=== PATIENT | male | born 1980 | race Caucasian/White ===

== ENCOUNTER 2020-09-15 12:24 | Inpatient (IN) | payer MEDICARE, MEDICAID ==
[~2020-09-15] VITALS: Ht 170.2 cm; Wt 66.2 kg
[2020-09-15] MEDS ORDERED: HALOPERIDOL 5 MG TABLET PO PRN (13:45)
[2020-09-15 16:49] VITALS: BP 144/96
[2020-09-15] MEDS ORDERED: INFLUENZA VIRUS VACCINE QVS 2020-21 (6MO+)/PF 60 MCG/0.5 ML SYRINGE IM ONE (17:15)
[2020-09-16 00:07] VITALS: BP 132/89
[2020-09-16 08:09] VITALS: BP 136/87
[2020-09-16 09:18] LABS: BILIRUBIN,URINE NEGATIVE (NEGATIVE); GLUCOSE, URINE (UA) NEGATIVE (NEGATIVE); KETONES,URINE NEGATIVE (NEGATIVE); LEUKOCYTE ESTERASE ,URINE NEGATIVE (NEGATIVE); NITRATE,URINE NEGATIVE (NEGATIVE); OCCULT BLOOD,URINE NEGATIVE (NEGATIVE); PH,URINE 7.5 (5.0-8.0); PROTEIN,URINE NEGATIVE (NEGATIVE); UROBILINOGEN,URINE 0.2 mg/dL (<=1.0)
[2020-09-16 09:23] LABS: AMPHET/METH SCREEN,URINE NEGATIVE (NEGATIVE); BARBITURATE SCREEN, URINE NEGATIVE (NEGATIVE); BENZODIAZEPINES SCREEN,URINE NEGATIVE (NEGATIVE); CANNABINOID SCREEN,URINE NEGATIVE (NEGATIVE); COCAINE SCREEN,URINE NEGATIVE (NEGATIVE); METHADONE SCREEN, URINE NEGATIVE (NEGATIVE); OPIATE SCREEN,URINE NEGATIVE (NEGATIVE)
[2020-09-16 09:26] LABS: PHENCYCLIDINE SCREEN,URINE NEGATIVE (NEGATIVE)
[2020-09-16 09:32] LABS: APPEARANCE,URINE CLEAR (CLEAR)
[2020-09-16] MEDS: LORazepam 2 MG TABLET PO PRN (12:41)
[2020-09-16 16:12] VITALS: BP 115/72
[2020-09-16] MEDS: OLANZapine 10 MG TABLET PO SCH (20:25)
[2020-09-16] MEDS: QUEtiapine FUMARATE 200 MG TABLET PO SCH (20:25)
[2020-09-16] MEDS: TraZODone HCL 150 MG TABLET PO SCH (20:25)
[2020-09-17 06:24] VITALS: BP 132/87
[2020-09-17] MEDS: PALIPERIDONE 6 MG ER TABLET PO SCH (08:02)
[2020-09-17] MEDS: BENZTROPINE MESYLATE 1 MG TABLET PO SCH ×2 (08:02→16:30)
[2020-09-17] MEDS: LITHIUM CARBONATE 600 MG CAPSULE PO SCH ×2 (08:03→16:30)
[2020-09-17 08:20] VITALS: BP 134/85
[2020-09-17] MEDS ORDERED: PALIPERIDONE PALMITATE 234 MG/1.5 ML SYRINGE IM SCH (09:00)
[2020-09-17] MEDS: LORazepam 2 MG TABLET PO PRN (12:36)
[2020-09-17 16:46] VITALS: BP 129/87
[2020-09-17] MEDS: QUEtiapine FUMARATE 200 MG TABLET PO SCH (20:35)
[2020-09-17] MEDS: TraZODone HCL 150 MG TABLET PO SCH (20:35)
[2020-09-17] MEDS: OLANZapine 10 MG TABLET PO SCH (20:36)
[2020-09-17] MEDS: ZOLPIDEM TARTRATE 10 MG TABLET PO PRN (21:16)
[2020-09-18] MEDS: LORazepam 2 MG TABLET PO PRN (06:06)
[2020-09-18 06:09] VITALS: BP 137/78
[2020-09-18 08:14] VITALS: BP 136/81
[2020-09-18] MEDS: BENZTROPINE MESYLATE 1 MG TABLET PO SCH ×2 (08:33→16:32)
[2020-09-18] MEDS: PALIPERIDONE 6 MG ER TABLET PO SCH (08:33)
[2020-09-18] MEDS: LITHIUM CARBONATE 600 MG CAPSULE PO SCH ×2 (08:34→16:32)
[2020-09-18 08:55] LABS: BASOPHILS % (AUTO) 0.7 % (0.0-2.0); EOSINOPHILS % (AUTO) 4.5 % (1.0-6.0); HEMATOCRIT 42.6 % (41-53); HEMOGLOBIN 14.3 g/dL (13.5-17.5); LYMPHOCYTES # (AUTO) 1.4 K/uL (1.0-4.8); LYMPHOCYTES % (AUTO) 12.2 % (22.0-44.0); MEAN CORPUSCULAR HEMOGLOBIN 30.6 pg (26.0-34.0); MEAN CORPUSCULAR HGB CONC 33.6 G/dL (31.0-37.0); MEAN CORPUSCULAR VOLUME 91 fL (80-100); MONOCYTES # (AUTO) 1.2 K/uL (0.1-1.0); MONOCYTES % (AUTO) 10.4 % (2.0-9.0); NEUTROPHILS # (AUTO) 8.5 K/uL (1.8-7.7); NEUTROPHILS % (AUTO) 72.2 % (40.0-70.0); PLATELET COUNT (AUTO) 418 K/uL (150-450); RED BLOOD CELL COUNT(AUTO) 4.68 MIL/uL (4.50-5.90); RED CELL DISTRIBUTION WIDTH 13.2 % (11.5-14.5)
[2020-09-18 09:08] LABS: HEMOGLOBIN A1C 5.2 % (3.8-5.6)
[2020-09-18 09:11] LABS: LITHIUM 0.48 mmol/L (0.60-1.20)
[2020-09-18 09:46] LABS: ALANINE AMINOTRANSFERASE 35 U/L (12-78); ALBUMIN 4.1 g/dL (3.4-5.0); ALKALINE PHOSPHATASE 54 U/L (46-116); ANION GAP 7 mmol/L (8-16); ASPARTATE AMINOTRANSFERASE 18 U/L (15-37); BILIRUBIN,TOTAL 0.4 mg/dL (0.1-1.0); CALCIUM, TOTAL 9.3 mg/dL (8.8-10.5); CARBON DIOXIDE 28 mmol/L (22-29); CHLORIDE 101 mmol/L (98-107); CHOL/HDL RATIO 2.2 (4.2-7.3); CHOLESTEROL 126 mg/dL (131-200); GLOMERULAR FILTR. RATE CALC > 60 mL/min (>60); GLUCOSE,RANDOM 69 mg/dL (70-110); HDL CHOLESTEROL 58 mg/dL (40-60); LDL CHOL (CALC.) 48 mg/dL (0-130); POTASSIUM 3.7 mmol/L (3.5-5.1); SODIUM SERUM 136 mmol/L (136-145); TOTAL PROTEIN, SERUM 7.5 g/dL (6.4-8.2); TRIGLYCERIDES 102 mg/dL (15-150); UREA NITROGEN, BLOOD 10 mg/dL (7-18)
[2020-09-18 16:30] VITALS: BP 132/89
[2020-09-18] MEDS: QUEtiapine FUMARATE 200 MG TABLET PO SCH (20:32)
[2020-09-18] MEDS: TraZODone HCL 150 MG TABLET PO SCH (20:32)
[2020-09-18] MEDS: OLANZapine 10 MG TABLET PO SCH (20:32)
[2020-09-18] MEDS ORDERED: BACITRACIN 28 GM OINTMENT TP PRN (22:15)
[2020-09-18] MEDS ORDERED: ALBUTEROL SULFATE HFA 90 MCG/PUFF 8 GM INHALER IH PRN (22:15)
[2020-09-18] MEDS ORDERED: MAG HYDROX/AL HYDROX/SIMETH ES 30 ML SUSPENSION UDCUP PO PRN (22:15)
[2020-09-18] MEDS ORDERED: ACETAMINOPHEN 325 MG TABLET PO PRN (22:15)
[2020-09-18] MEDS ORDERED: CloNIDine HCL 0.1 MG TABLET PO PRN (22:15)
[2020-09-18] MEDS ORDERED: ONDANSETRON HCL 4 MG TABLET PO PRN (22:15)
[2020-09-18] MEDS ORDERED: LOPERAMIDE HCL 2 MG CAPSULE PO PRN (22:15)
[2020-09-18] MEDS ORDERED: PETROLATUM,WHITE 28 GM JELLY TP PRN (22:15)
[2020-09-18] MEDS ORDERED: IBUPROFEN 600 MG TABLET PO PRN (22:15)
[2020-09-18] MEDS ORDERED: BENZOCAINE/MENTHOL LOZENGE PO PRN (22:15)
[2020-09-18] MEDS ORDERED: MAGNESIUM HYDROXIDE SUSPENSION 30 ML UDCUP PO PRN (22:15)
[2020-09-19 03:46] VITALS: BP 129/60
[2020-09-19] MEDS: LORazepam 2 MG TABLET PO PRN (03:56)
[2020-09-19 08:17] VITALS: BP 137/83
[2020-09-19] MEDS: BENZTROPINE MESYLATE 1 MG TABLET PO SCH ×2 (09:39→16:58)
[2020-09-19] MEDS: OMEPRAZOLE 20 MG CAPSULE PO SCH (09:39)
[2020-09-19] MEDS: DOCUSATE SODIUM 100 MG CAPSULE PO SCH (09:40)
[2020-09-19] MEDS: PALIPERIDONE 6 MG ER TABLET PO SCH (09:40)
[2020-09-19] MEDS: LITHIUM CARBONATE 600 MG CAPSULE PO SCH ×2 (10:32→16:57)
[2020-09-19 16:10] VITALS: BP 133/90
[2020-09-19] MEDS: TraZODone HCL 150 MG TABLET PO SCH (20:37)
[2020-09-19] MEDS: OLANZapine 10 MG TABLET PO SCH (20:38)
[2020-09-19] MEDS: QUEtiapine FUMARATE 200 MG TABLET PO SCH (20:38)
[2020-09-20 01:13] VITALS: BP 115/82
[2020-09-20] MEDS: PALIPERIDONE 6 MG ER TABLET PO SCH (08:16)
[2020-09-20] MEDS: OMEPRAZOLE 20 MG CAPSULE PO SCH (08:16)
[2020-09-20] MEDS: BENZTROPINE MESYLATE 1 MG TABLET PO SCH ×2 (08:16→16:34)
[2020-09-20] MEDS: DOCUSATE SODIUM 100 MG CAPSULE PO SCH (08:16)
[2020-09-20] MEDS: LITHIUM CARBONATE 600 MG CAPSULE PO SCH ×2 (08:16→16:35)
[2020-09-20 08:48] VITALS: BP 140/88
[2020-09-20 08:55] LABS: BASOPHILS % (AUTO) 1.3 % (0.0-2.0); EOSINOPHILS % (AUTO) 6.6 % (1.0-6.0); HEMATOCRIT 41.3 % (41-53); HEMOGLOBIN 14.2 g/dL (13.5-17.5); LYMPHOCYTES # (AUTO) 1.7 K/uL (1.0-4.8); LYMPHOCYTES % (AUTO) 21.5 % (22.0-44.0); MEAN CORPUSCULAR HEMOGLOBIN 30.8 pg (26.0-34.0); MEAN CORPUSCULAR HGB CONC 34.3 G/dL (31.0-37.0); MEAN CORPUSCULAR VOLUME 90 fL (80-100); MONOCYTES % (AUTO) 12.1 % (2.0-9.0); NEUTROPHILS # (AUTO) 4.7 K/uL (1.8-7.7); NEUTROPHILS % (AUTO) 58.5 % (40.0-70.0); PLATELET COUNT (AUTO) 403 K/uL (150-450); RED CELL DISTRIBUTION WIDTH 12.9 % (11.5-14.5)
[2020-09-20 09:14] LABS: COVID AG,FIA SOURCE NASAL SWAB
[2020-09-20 09:14] LABS: HEMOGLOBIN A1C 5.4 % (3.8-5.6)
[2020-09-20 09:18] LABS: LITHIUM 0.68 mmol/L (0.60-1.20)
[2020-09-20 09:41] LABS: ALANINE AMINOTRANSFERASE 37 U/L (12-78); ALBUMIN 4.2 g/dL (3.4-5.0); ALKALINE PHOSPHATASE 54 U/L (46-116); ANION GAP 7 mmol/L (8-16); ASPARTATE AMINOTRANSFERASE 23 U/L (15-37); BILIRUBIN,TOTAL 0.4 mg/dL (0.1-1.0); CALCIUM, TOTAL 9.6 mg/dL (8.8-10.5); CARBON DIOXIDE 29 mmol/L (22-29); CHLORIDE 102 mmol/L (98-107); CHOL/HDL RATIO 2.1 (4.2-7.3); CHOLESTEROL 132 mg/dL (131-200); CREATININE 0.91 mg/dL (0.60-1.30); GLOMERULAR FILTR. RATE CALC > 60 mL/min (>60); GLUCOSE,RANDOM 77 mg/dL (70-110); HDL CHOLESTEROL 63 mg/dL (40-60); LDL CHOL (CALC.) 54 mg/dL (0-130); PHOSPHORUS 4.5 mg/dL (2.5-4.9); POTASSIUM 3.9 mmol/L (3.5-5.1); SODIUM SERUM 138 mmol/L (136-145); THYROID STIMULATING HORMONE 7.68 uIU/mL (0.36-3.74); TOTAL PROTEIN, SERUM 7.8 g/dL (6.4-8.2); TRIGLYCERIDES 73 mg/dL (15-150); UREA NITROGEN, BLOOD 14 mg/dL (7-18)
[2020-09-20 16:43] VITALS: BP 138/95
[2020-09-20] MEDS: TraZODone HCL 150 MG TABLET PO SCH (20:37)
[2020-09-20] MEDS: OLANZapine 10 MG TABLET PO SCH (20:38)
[2020-09-20] MEDS: QUEtiapine FUMARATE 200 MG TABLET PO SCH (20:38)
[2020-09-21 04:14] VITALS: BP 124/88
[2020-09-21 08:17] VITALS: BP 134/93
[2020-09-21] MEDS: BENZTROPINE MESYLATE 1 MG TABLET PO SCH ×2 (09:07→16:38)
[2020-09-21] MEDS: PALIPERIDONE 6 MG ER TABLET PO SCH (09:07)
[2020-09-21] MEDS: OMEPRAZOLE 20 MG CAPSULE PO SCH (09:07)
[2020-09-21] MEDS: LITHIUM CARBONATE 600 MG CAPSULE PO SCH ×2 (09:07→16:37)
[2020-09-21] MEDS: DOCUSATE SODIUM 100 MG CAPSULE PO SCH (09:07)
[2020-09-21] MEDS: LORazepam 2 MG TABLET PO PRN (13:39)
[2020-09-21 16:18] VITALS: BP 133/83
[2020-09-21] MEDS: QUEtiapine FUMARATE 200 MG TABLET PO SCH (20:33)
[2020-09-21] MEDS: TraZODone HCL 150 MG TABLET PO SCH (20:33)
[2020-09-21] MEDS: OLANZapine 10 MG TABLET PO SCH (20:33)
[2020-09-22 01:36] VITALS: BP 135/88
[2020-09-22 08:40] VITALS: BP 137/84
[2020-09-22] MEDS: OMEPRAZOLE 20 MG CAPSULE PO SCH (08:50)
[2020-09-22] MEDS: BENZTROPINE MESYLATE 1 MG TABLET PO SCH ×2 (08:50→16:41)
[2020-09-22] MEDS: DOCUSATE SODIUM 100 MG CAPSULE PO SCH (08:50)
[2020-09-22] MEDS: LITHIUM CARBONATE 600 MG CAPSULE PO SCH ×2 (08:50→16:41)
[2020-09-22] MEDS: PALIPERIDONE 6 MG ER TABLET PO SCH (08:50)
[2020-09-22 16:23] VITALS: BP 137/86
[2020-09-22] MEDS: LORazepam 2 MG TABLET PO PRN (16:41)
[2020-09-22] MEDS: TraZODone HCL 150 MG TABLET PO SCH (20:37)
[2020-09-22] MEDS: OLANZapine 10 MG TABLET PO SCH (20:37)
[2020-09-22] MEDS: QUEtiapine FUMARATE 200 MG TABLET PO SCH (20:37)
[2020-09-23 06:33] VITALS: BP 135/86
[2020-09-23] MEDS: LEVOTHYROXINE SODIUM 50 MCG TABLET PO SCH (06:49)
[2020-09-23] MEDS: PALIPERIDONE 6 MG ER TABLET PO SCH (08:25)
[2020-09-23] MEDS: LITHIUM CARBONATE 600 MG CAPSULE PO SCH ×2 (08:25→16:36)
[2020-09-23] MEDS: DOCUSATE SODIUM 100 MG CAPSULE PO SCH (08:25)
[2020-09-23] MEDS: OMEPRAZOLE 20 MG CAPSULE PO SCH (08:25)
[2020-09-23] MEDS: BENZTROPINE MESYLATE 1 MG TABLET PO SCH ×2 (08:25→16:36)
[2020-09-23 08:33] VITALS: BP 138/90
[2020-09-23 16:35] VITALS: BP 140/81
[2020-09-23] MEDS: QUEtiapine FUMARATE 200 MG TABLET PO SCH (20:27)
[2020-09-23] MEDS: TraZODone HCL 150 MG TABLET PO SCH (20:27)
[2020-09-23] MEDS: OLANZapine 10 MG TABLET PO SCH (20:27)
[2020-09-24 00:50] VITALS: BP 136/90
[2020-09-24] MEDS: LEVOTHYROXINE SODIUM 50 MCG TABLET PO SCH (06:54)
[2020-09-24] MEDS: BENZTROPINE MESYLATE 1 MG TABLET PO SCH ×2 (08:18→16:28)
[2020-09-24] MEDS: LITHIUM CARBONATE 600 MG CAPSULE PO SCH ×2 (08:18→16:28)
[2020-09-24] MEDS: OMEPRAZOLE 20 MG CAPSULE PO SCH (08:18)
[2020-09-24] MEDS: DOCUSATE SODIUM 100 MG CAPSULE PO SCH (08:18)
[2020-09-24] MEDS: PALIPERIDONE 6 MG ER TABLET PO SCH (08:19)
[2020-09-24 08:31] VITALS: BP 145/87
[2020-09-24 16:16] VITALS: BP_SYST 136; BP_SYST 145; BP_DIAS 86; BP_DIAS 88
[2020-09-24] MEDS: TraZODone HCL 150 MG TABLET PO SCH (20:25)
[2020-09-24] MEDS: QUEtiapine FUMARATE 200 MG TABLET PO SCH (20:25)
[2020-09-24] MEDS: OLANZapine 10 MG TABLET PO SCH (20:25)
[2020-09-25] MEDS: ZOLPIDEM TARTRATE 10 MG TABLET PO PRN (00:35)
[2020-09-25] MEDS: LORazepam 2 MG TABLET PO PRN ×2 (00:35→11:30)
[2020-09-25 00:46] VITALS: BP 135/101
[2020-09-25] MEDS: LEVOTHYROXINE SODIUM 50 MCG TABLET PO SCH (06:28)
[2020-09-25 08:27] VITALS: BP 134/80
[2020-09-25] MEDS: LITHIUM CARBONATE 600 MG CAPSULE PO SCH ×2 (08:33→16:36)
[2020-09-25] MEDS: OMEPRAZOLE 20 MG CAPSULE PO SCH (08:33)
[2020-09-25] MEDS: BENZTROPINE MESYLATE 1 MG TABLET PO SCH ×2 (08:33→16:36)
[2020-09-25] MEDS: DOCUSATE SODIUM 100 MG CAPSULE PO SCH (08:33)
[2020-09-25] MEDS: PALIPERIDONE 6 MG ER TABLET PO SCH (08:33)
[2020-09-25 16:35] VITALS: BP 132/82
[2020-09-25] MEDS: TraZODone HCL 150 MG TABLET PO SCH (20:30)
[2020-09-25] MEDS: QUEtiapine FUMARATE 200 MG TABLET PO SCH (20:30)
[2020-09-25] MEDS: OLANZapine 10 MG TABLET PO SCH (20:30)
[2020-09-26 00:49] VITALS: BP 126/92
[2020-09-26] MEDS: LEVOTHYROXINE SODIUM 50 MCG TABLET PO SCH (06:27)
[2020-09-26] MEDS: PALIPERIDONE 6 MG ER TABLET PO SCH (08:08)
[2020-09-26] MEDS: DOCUSATE SODIUM 100 MG CAPSULE PO SCH (08:08)
[2020-09-26] MEDS: OMEPRAZOLE 20 MG CAPSULE PO SCH (08:08)
[2020-09-26] MEDS: BENZTROPINE MESYLATE 1 MG TABLET PO SCH ×2 (08:08→16:12)
[2020-09-26] MEDS: LITHIUM CARBONATE 600 MG CAPSULE PO SCH ×2 (08:08→16:12)
[2020-09-26 08:10] VITALS: BP 136/90
[2020-09-26] MEDS: LORazepam 2 MG TABLET PO PRN ×2 (09:24→14:06)
[2020-09-26 16:06] VITALS: BP 140/80
[2020-09-26] MEDS: TraZODone HCL 150 MG TABLET PO SCH (20:10)
[2020-09-26] MEDS: OLANZapine 10 MG TABLET PO SCH (20:10)
[2020-09-26] MEDS: QUEtiapine FUMARATE 200 MG TABLET PO SCH (20:10)
[2020-09-27 04:31] VITALS: BP 131/86
[2020-09-27] MEDS: LEVOTHYROXINE SODIUM 50 MCG TABLET PO SCH (06:27)
[2020-09-27 07:52] LABS: COVID AG,FIA SOURCE NASAL SWAB
[2020-09-27] MEDS: OMEPRAZOLE 20 MG CAPSULE PO SCH (08:10)
[2020-09-27] MEDS: DOCUSATE SODIUM 100 MG CAPSULE PO SCH (08:10)
[2020-09-27] MEDS: PALIPERIDONE 6 MG ER TABLET PO SCH (08:10)
[2020-09-27] MEDS: LORazepam 2 MG TABLET PO PRN (08:10)
[2020-09-27] MEDS: LITHIUM CARBONATE 600 MG CAPSULE PO SCH ×2 (08:10→16:30)
[2020-09-27] MEDS: BENZTROPINE MESYLATE 1 MG TABLET PO SCH ×2 (08:10→16:30)
[2020-09-27 08:27] VITALS: BP 137/90
[2020-09-27 16:09] VITALS: BP 132/81
[2020-09-27] MEDS: QUEtiapine FUMARATE 200 MG TABLET PO SCH (20:28)
[2020-09-27] MEDS: TraZODone HCL 150 MG TABLET PO SCH (20:28)
[2020-09-27] MEDS: OLANZapine 10 MG TABLET PO SCH (20:28)
[2020-09-27] MEDS: ZOLPIDEM TARTRATE 10 MG TABLET PO PRN (22:55)
[2020-09-28 05:02] VITALS: BP 128/88
[2020-09-28] MEDS: LEVOTHYROXINE SODIUM 50 MCG TABLET PO SCH (06:36)
[2020-09-28] MEDS: OMEPRAZOLE 20 MG CAPSULE PO SCH (08:20)
[2020-09-28] MEDS: DOCUSATE SODIUM 100 MG CAPSULE PO SCH (08:20)
[2020-09-28] MEDS: PALIPERIDONE 6 MG ER TABLET PO SCH (08:20)
[2020-09-28] MEDS: LITHIUM CARBONATE 600 MG CAPSULE PO SCH ×2 (08:21→16:04)
[2020-09-28] MEDS: BENZTROPINE MESYLATE 1 MG TABLET PO SCH ×2 (08:21→16:03)
[2020-09-28 08:27] VITALS: BP 139/95
[2020-09-28] MEDS: LORazepam 2 MG TABLET PO PRN (09:45)
[2020-09-28 16:21] VITALS: BP 139/81
[2020-09-28] MEDS: ZOLPIDEM TARTRATE 10 MG TABLET PO PRN (20:16)
[2020-09-28] MEDS: QUEtiapine FUMARATE 200 MG TABLET PO SCH (20:16)
[2020-09-28] MEDS: TraZODone HCL 150 MG TABLET PO SCH (20:16)
[2020-09-28] MEDS: OLANZapine 10 MG TABLET PO SCH (20:16)
[2020-09-29 03:10] VITALS: BP 136/73
[2020-09-29] MEDS: LEVOTHYROXINE SODIUM 50 MCG TABLET PO SCH (06:29)
[2020-09-29 08:09] VITALS: BP 140/80
[2020-09-29] MEDS: LITHIUM CARBONATE 600 MG CAPSULE PO SCH (08:42)
[2020-09-29] MEDS: PALIPERIDONE 6 MG ER TABLET PO SCH (08:42)
[2020-09-29] MEDS: BENZTROPINE MESYLATE 1 MG TABLET PO SCH (08:42)
[2020-09-29] MEDS: DOCUSATE SODIUM 100 MG CAPSULE PO SCH (08:42)
[2020-09-29] MEDS: OMEPRAZOLE 20 MG CAPSULE PO SCH (08:42)
[2020-09-29] MEDS ORDERED: TRAZ150 PO (10:05)
[2020-09-29] MEDS ORDERED: BENZ1TAB10 PO (10:05)
[2020-09-29] MEDS ORDERED: LITH600 PO (10:05)
[2020-09-29] MEDS ORDERED: QUET200T PO (10:05)
[2020-09-29] MEDS ORDERED: PALI6TAB15 PO (10:05)
[2020-09-29] MEDS ORDERED: OLAN10TA3 PO (10:05)
[2020-09-29] MEDS ORDERED: DOCU-275 PO (10:23)
[2020-09-29] MEDS ORDERED: OMEP20 PO (10:23)
[2020-09-29] MEDS ORDERED: LEVO50 PO (10:23)
== END 2020-09-29 15:36 | disposition home or self-care (01) | DRG 885 ==
LOC: B2X 15:40
PROVIDERS: ADMIT Psychiatry & Neurology Psychiatry; ATTEND Psychiatry & Neurology Psychiatry
DX: F25.9 Schizoaffective disorder, unspecified (principal); R45.851 Suicidal ideations; F41.9 Anxiety disorder, unspecified; G47.00 Insomnia, unspecified; K59.00 Constipation, unspecified; E03.9 Hypothyroidism, unspecified; Z20.822 Contact with and (suspected) exposure to COVID-19; F17.200 Nicotine dependence, unspecified, uncomplicated; Z71.6 Tobacco abuse counseling; Z23 Encounter for immunization
CPT/HCPCS: 80307; 83036; 83735; 84100; 84443; 87081; 87426; 90686

== ENCOUNTER 2020-10-07 12:41 | Inpatient (IN) | payer MEDICARE, MEDICAID ==
[~2020-10-07] VITALS: Ht 170.2 cm; Wt 64.3 kg
[~2020-10-07 12:41] MED LIST: BENZ1TAB10 PO; LEVO50 PO; LITH600C5 PO; OLAN10TA3 PO; PALI6TAB15 PO; QUET200T PO; TRAZ150 PO
[2020-10-07] MEDS ORDERED: HALOPERIDOL 5 MG TABLET PO PRN (15:30)
[2020-10-07 15:33] VITALS: BP 121/87
[2020-10-07] MEDS ORDERED: -PHARMACY VACCINE NOTE- MISC ONE (16:45)
[2020-10-07 17:02] LABS: COVID AG,FIA SOURCE NASOPHARYNGEAL
[2020-10-07 18:48] VITALS: BP 146/91
[2020-10-08 00:34] VITALS: BP 138/85
[2020-10-08] MEDS: LEVOTHYROXINE SODIUM 50 MCG TABLET PO SCH (06:21)
[2020-10-08] MEDS ORDERED: LOPERAMIDE HCL 2 MG CAPSULE PO PRN (07:30)
[2020-10-08] MEDS ORDERED: NICOTINE 14 MG/24 HOUR PATCH TD PRN (07:30)
[2020-10-08] MEDS ORDERED: ACETAMINOPHEN 325 MG TABLET PO PRN (07:30)
[2020-10-08] MEDS ORDERED: MAGNESIUM HYDROXIDE SUSPENSION 30 ML UDCUP PO PRN (07:30)
[2020-10-08] MEDS ORDERED: ALBUTEROL SULFATE HFA 90 MCG/PUFF 8 GM INHALER IH PRN (07:30)
[2020-10-08] MEDS ORDERED: CloNIDine HCL 0.1 MG TABLET PO PRN (07:30)
[2020-10-08] MEDS ORDERED: PETROLATUM,WHITE 28 GM JELLY TP PRN (07:30)
[2020-10-08] MEDS ORDERED: IBUPROFEN 400 MG TABLET PO PRN (07:30)
[2020-10-08] MEDS ORDERED: ONDANSETRON HCL 4 MG TABLET PO PRN (07:30)
[2020-10-08] MEDS ORDERED: GuaiFENesin/D-METHORPHAN [SUGAR-FREE] 200-20MG/10 ML SYRUP UDCUP PO PRN (07:30)
[2020-10-08] MEDS ORDERED: DOCUSATE SODIUM 100 MG CAPSULE PO PRN (07:30)
[2020-10-08] MEDS ORDERED: MAG HYDROX/AL HYDROX/SIMETH ES 30 ML SUSPENSION UDCUP PO PRN (07:30)
[2020-10-08 07:41] LABS: BASOPHILS % (AUTO) 0.9 % (0.0-2.0); HEMATOCRIT 41.9 % (41-53); HEMOGLOBIN 14.1 g/dL (13.5-17.5); LYMPHOCYTES # (AUTO) 2.4 K/uL (1.0-4.8); LYMPHOCYTES % (AUTO) 22.3 % (22.0-44.0); MEAN CORPUSCULAR HGB CONC 33.6 G/dL (31.0-37.0); MEAN CORPUSCULAR VOLUME 89 fL (80-100); MONOCYTES % (AUTO) 9.1 % (2.0-9.0); NEUTROPHILS # (AUTO) 6.8 K/uL (1.8-7.7); NEUTROPHILS % (AUTO) 62.7 % (40.0-70.0); PLATELET COUNT (AUTO) 700 K/uL (150-450); RED BLOOD CELL COUNT(AUTO) 4.69 MIL/uL (4.50-5.90); RED CELL DISTRIBUTION WIDTH 13.4 % (11.5-14.5)
[2020-10-08 07:59] LABS: HEMOGLOBIN A1C 5.7 % (3.8-5.6)
[2020-10-08 08:05] LABS: ALANINE AMINOTRANSFERASE 30 U/L (12-78); ALBUMIN 3.6 g/dL (3.4-5.0); ALKALINE PHOSPHATASE 57 U/L (46-116); ANION GAP 9 mmol/L (8-16); ASPARTATE AMINOTRANSFERASE 15 U/L (15-37); BILIRUBIN,TOTAL 0.1 mg/dL (0.1-1.0); CARBON DIOXIDE 26 mmol/L (22-29); CHLORIDE 102 mmol/L (98-107); CHOL/HDL RATIO 2.9 (4.2-7.3); CHOLESTEROL 124 mg/dL (131-200); CREATININE 0.88 mg/dL (0.60-1.30); FREE T4 (FREE THYROXINE) 1.14 ng/dL (0.76-1.46); GLOMERULAR FILTR. RATE CALC > 60 mL/min (>60); GLUCOSE,RANDOM 84 mg/dL (70-110); HDL CHOLESTEROL 43 mg/dL (40-60); LDL CHOL (CALC.) 69 mg/dL (0-130); POTASSIUM 4.1 mmol/L (3.5-5.1); SODIUM SERUM 137 mmol/L (136-145); THYROID STIMULATING HORMONE 3.39 uIU/mL (0.36-3.74); TOTAL PROTEIN, SERUM 7.2 g/dL (6.4-8.2); TRIGLYCERIDES 61 mg/dL (15-150); UREA NITROGEN, BLOOD 13 mg/dL (7-18)
[2020-10-08 08:07] VITALS: BP 138/78
[2020-10-08] MEDS: LORazepam 2 MG TABLET PO PRN ×2 (10:34→17:30)
[2020-10-08 16:09] VITALS: BP 116/70
[2020-10-09 00:35] VITALS: BP 102/64
[2020-10-09] MEDS ORDERED: LEVOTHYROXINE SODIUM 50 MCG TABLET PO SCH (06:30)
[2020-10-09] MEDS: LEVOTHYROXINE SODIUM 50 MCG TABLET PO SCH (06:58)
[2020-10-09 08:17] VITALS: BP 128/90
[2020-10-09] MEDS: LORazepam 2 MG TABLET PO PRN (08:38)
[2020-10-09] MEDS: PALIPERIDONE 6 MG ER TABLET PO SCH (12:22)
[2020-10-09 16:13] VITALS: BP 135/89
[2020-10-09] MEDS: LITHIUM CARBONATE 600 MG CAPSULE PO SCH (16:38)
[2020-10-09] MEDS: ZOLPIDEM TARTRATE 10 MG TABLET PO PRN (21:01)
[2020-10-10 01:10] VITALS: BP 123/83
[2020-10-10] MEDS: LORazepam 2 MG TABLET PO PRN ×2 (01:14→12:46)
[2020-10-10] MEDS: LEVOTHYROXINE SODIUM 50 MCG TABLET PO SCH (06:29)
[2020-10-10] MEDS: PALIPERIDONE 6 MG ER TABLET PO SCH (08:08)
[2020-10-10] MEDS: LITHIUM CARBONATE 600 MG CAPSULE PO SCH ×2 (08:08→16:44)
[2020-10-10 08:36] VITALS: BP 135/80
[2020-10-10 16:10] VITALS: BP 154/92
[2020-10-11 01:07] VITALS: BP 135/85
[2020-10-11] MEDS: LEVOTHYROXINE SODIUM 50 MCG TABLET PO SCH (06:25)
[2020-10-11] MEDS: LITHIUM CARBONATE 600 MG CAPSULE PO SCH ×2 (08:08→16:14)
[2020-10-11] MEDS: PALIPERIDONE 6 MG ER TABLET PO SCH (08:08)
[2020-10-11 08:19] VITALS: BP 138/89
[2020-10-11] MEDS: LORazepam 2 MG TABLET PO PRN (14:19)
[2020-10-11 16:07] VITALS: BP 123/82
[2020-10-11] MEDS: ZOLPIDEM TARTRATE 10 MG TABLET PO PRN (19:03)
[2020-10-12 03:51] VITALS: BP 146/95
[2020-10-12] MEDS: LEVOTHYROXINE SODIUM 50 MCG TABLET PO SCH (06:36)
[2020-10-12 08:04] VITALS: BP 112/68
[2020-10-12 08:33] LABS: COVID AG,FIA SOURCE NASOPHARYNGEAL
[2020-10-12] MEDS: PALIPERIDONE 6 MG ER TABLET PO SCH (08:33)
[2020-10-12] MEDS: LITHIUM CARBONATE 600 MG CAPSULE PO SCH ×2 (08:33→16:28)
[2020-10-12 16:14] VITALS: BP 136/87
[2020-10-12] MEDS: LORazepam 2 MG TABLET PO PRN (17:10)
[2020-10-12] MEDS: ZOLPIDEM TARTRATE 10 MG TABLET PO PRN (20:58)
[2020-10-13 06:37] VITALS: BP 118/78
[2020-10-13] MEDS: LEVOTHYROXINE SODIUM 50 MCG TABLET PO SCH (06:46)
[2020-10-13] MEDS: PALIPERIDONE 6 MG ER TABLET PO SCH (08:01)
[2020-10-13] MEDS: LITHIUM CARBONATE 600 MG CAPSULE PO SCH (08:01)
[2020-10-13 08:31] VITALS: BP 132/87
[2020-10-13] MEDS ORDERED: PALI234D IM (09:37)
[2020-10-15] MEDS ORDERED: PALIPERIDONE PALMITATE 234 MG/1.5 ML SYRINGE IM SCH (09:00)
== END 2020-10-13 14:42 | disposition home or self-care (01) | DRG 885 ==
LOC: B2X 15:48
PROVIDERS: ADMIT Psychiatry & Neurology Psychiatry; ATTEND Psychiatry & Neurology Psychiatry
DX: F25.9 Schizoaffective disorder, unspecified (principal); R45.851 Suicidal ideations; E03.9 Hypothyroidism, unspecified; K21.9 Gastro-esophageal reflux disease without esophagitis; G47.00 Insomnia, unspecified; Z20.822 Contact with and (suspected) exposure to COVID-19; F41.9 Anxiety disorder, unspecified; Z91.5 Personal history of self-harm
CPT/HCPCS: 83036; 84439; 84443; 87081; 87426

== ENCOUNTER 2021-02-23 14:51 | Emergency (ER) | payer MEDICARE, MEDICAID ==
[~2021-02-23] VITALS: Ht 170.2 cm; Wt 63.6 kg
[~2021-02-23 14:51] MED LIST changes: -BENZ1TAB10 PO; -OLAN10TA3 PO; +PALI234D IM; -QUET200T PO; -TRAZ150 PO
[2021-02-23 16:17] LABS: BASOPHILS % (AUTO) 0.7 % (0.0-2.0); EOSINOPHILS % (AUTO) 0.8 % (1.0-6.0); HEMATOCRIT 40.3 % (41-53); HEMOGLOBIN 13.2 g/dL (13.5-17.5); LYMPHOCYTES # (AUTO) 1.1 K/uL (1.0-4.8); LYMPHOCYTES % (AUTO) 9.5 % (22.0-44.0); MEAN CORPUSCULAR HEMOGLOBIN 27.8 pg (26.0-34.0); MEAN CORPUSCULAR HGB CONC 32.8 G/dL (31.0-37.0); MEAN CORPUSCULAR VOLUME 85 fL (80-100); MONOCYTES # (AUTO) 0.8 K/uL (0.1-1.0); MONOCYTES % (AUTO) 6.7 % (2.0-9.0); NEUTROPHILS # (AUTO) 9.4 K/uL (1.8-7.7); NEUTROPHILS % (AUTO) 82.3 % (40.0-70.0); PLATELET COUNT (AUTO) 476 K/uL (150-450); RED BLOOD CELL COUNT(AUTO) 4.74 MIL/uL (4.50-5.90); RED CELL DISTRIBUTION WIDTH 15.4 % (11.5-14.5)
[2021-02-23 16:27] LABS: ANION GAP 6 mmol/L (8-16); CALCIUM, TOTAL 9.4 mg/dL (8.8-10.5); CARBON DIOXIDE 27 mmol/L (22-29); CHLORIDE 101 mmol/L (98-107); CREATININE 0.68 mg/dL (0.60-1.30); GLOMERULAR FILTR. RATE CALC > 60 mL/min (>60); GLUCOSE,RANDOM 114 mg/dL (70-110); POTASSIUM 3.7 mmol/L (3.5-5.1); SODIUM SERUM 134 mmol/L (136-145); UREA NITROGEN, BLOOD 15 mg/dL (7-18)
[2021-02-23 16:33] LABS: ALANINE AMINOTRANSFERASE 25 U/L (12-78); ALBUMIN 3.6 g/dL (3.4-5.0); ALKALINE PHOSPHATASE 66 U/L (46-116); ASPARTATE AMINOTRANSFERASE 12 U/L (15-37); BILIRUBIN,TOTAL 0.3 mg/dL (0.1-1.0); LIPASE 113 U/L (73-393); TOTAL PROTEIN, SERUM 7.1 g/dL (6.4-8.2)
[2021-02-23 17:37] VITALS: BP 125/86
== END 2021-02-23 18:30 | disposition left against medical advice (07) ==
LOC: EMS 14:55
DX: R10.9 Unspecified abdominal pain (principal); R11.2 Nausea with vomiting, unspecified; F17.210 Nicotine dependence, cigarettes, uncomplicated; F11.90 Opioid use, unspecified, uncomplicated; F12.90 Cannabis use, unspecified, uncomplicated
CPT/HCPCS: 80053; 83690; 85025; 99283

== ENCOUNTER 2021-02-23 18:37 | Emergency (ER) | payer MEDICARE, MEDICAID ==
[~2021-02-23] VITALS: Ht 170.2 cm; Wt 63.6 kg
[2021-02-23 18:40] VITALS: BP 105/72
== END 2021-02-23 20:34 | disposition left against medical advice (07) ==
LOC: EMS 18:42
DX: Z00.8 Encounter for other general examination (principal); Z53.21 Procedure and treatment not carried out due to patient leaving prior to being seen by health care provider

== ENCOUNTER 2021-03-23 12:47 | Emergency (ER) | payer MEDICARE, MEDICAID ==
[~2021-03-23] VITALS: Ht 170.2 cm; Wt 63.6 kg
[2021-03-23] MEDS ORDERED: KETOROLAC TROMETHAMINE 30 MG/ML VIAL IM ONE (13:15)
[2021-03-23 13:32] LABS: BASOPHILS % (AUTO) 0.8 % (0.0-2.0); EOSINOPHILS % (AUTO) 0.6 % (1.0-6.0); HEMATOCRIT 38.5 % (41-53); LYMPHOCYTES # (AUTO) 1.8 K/uL (1.0-4.8); LYMPHOCYTES % (AUTO) 17.9 % (22.0-44.0); MEAN CORPUSCULAR HEMOGLOBIN 27.9 pg (26.0-34.0); MEAN CORPUSCULAR HGB CONC 33.8 G/dL (31.0-37.0); MEAN CORPUSCULAR VOLUME 83 fL (80-100); MONOCYTES # (AUTO) 1.1 K/uL (0.1-1.0); MONOCYTES % (AUTO) 11.6 % (2.0-9.0); NEUTROPHILS # (AUTO) 6.8 K/uL (1.8-7.7); NEUTROPHILS % (AUTO) 69.1 % (40.0-70.0); PLATELET COUNT (AUTO) 483 K/uL (150-450); RED BLOOD CELL COUNT(AUTO) 4.67 MIL/uL (4.50-5.90); RED CELL DISTRIBUTION WIDTH 15.4 % (11.5-14.5)
[2021-03-23 13:41] LABS: ANION GAP 12 mmol/L (8-16); CALCIUM, TOTAL 8.7 mg/dL (8.8-10.5); CARBON DIOXIDE 21 mmol/L (22-29); CHLORIDE 96 mmol/L (98-107); CREATININE 0.42 mg/dL (0.60-1.30); GLOMERULAR FILTR. RATE CALC > 60 mL/min (>60); GLUCOSE,RANDOM 95 mg/dL (70-110); POTASSIUM 3.6 mmol/L (3.5-5.1); SODIUM SERUM 129 mmol/L (136-145); UREA NITROGEN, BLOOD 5 mg/dL (7-18)
[2021-03-23 13:47] LABS: ALANINE AMINOTRANSFERASE 27 U/L (12-78); ALBUMIN 3.8 g/dL (3.4-5.0); ALKALINE PHOSPHATASE 68 U/L (46-116); ASPARTATE AMINOTRANSFERASE 13 U/L (15-37); BILIRUBIN,TOTAL 0.3 mg/dL (0.1-1.0); LIPASE 130 U/L (73-393)
[2021-03-23 16:17] VITALS: BP 126/88
== END 2021-03-23 16:00 | disposition home or self-care (01) ==
LOC: EMS 12:47
DX: R10.84 Generalized abdominal pain (principal); F31.9 Bipolar disorder, unspecified; F20.9 Schizophrenia, unspecified; F12.90 Cannabis use, unspecified, uncomplicated; F11.90 Opioid use, unspecified, uncomplicated; Z43.3 Encounter for attention to colostomy; Z59.0 Homelessness
CPT/HCPCS: 36415; 80053; 80178; 83690; 85025; 96372; 99283; J1885

== ENCOUNTER 2021-04-23 10:34 | Inpatient (IN) | payer MEDICARE, MEDICAID ==
[~2021-04-23] VITALS: Ht 170.2 cm; Wt 64.4 kg
[2021-04-23 11:23] LABS: COVID AG,FIA SOURCE NASOPHARYNGEAL
[2021-04-23 12:18] LABS: APPEARANCE,URINE CLEAR (CLEAR); BILIRUBIN,URINE NEGATIVE (NEGATIVE); GLUCOSE, URINE (UA) NEGATIVE (NEGATIVE); KETONES,URINE TRACE mg/dL (NEGATIVE); LEUKOCYTE ESTERASE ,URINE NEGATIVE (NEGATIVE); NITRATE,URINE NEGATIVE (NEGATIVE); OCCULT BLOOD,URINE NEGATIVE (NEGATIVE); PH,URINE 5.5 (5.0-8.0); PROTEIN,URINE POS 1+ (NEGATIVE); UROBILINOGEN,URINE 0.2 mg/dL (<=1.0)
[2021-04-23 12:24] LABS: AMPHET/METH SCREEN,URINE NEGATIVE (NEGATIVE); BARBITURATE SCREEN, URINE NEGATIVE (NEGATIVE); BENZODIAZEPINES SCREEN,URINE POSITIVE (NEGATIVE); CANNABINOID SCREEN,URINE NEGATIVE (NEGATIVE); COCAINE SCREEN,URINE NEGATIVE (NEGATIVE); METHADONE SCREEN, URINE NEGATIVE (NEGATIVE); OPIATE SCREEN,URINE NEGATIVE (NEGATIVE); PHENCYCLIDINE SCREEN,URINE NEGATIVE (NEGATIVE)
[2021-04-23 12:38] LABS: BACTERIA,URINE None Seen /HPF (None Seen); RBC,URINE None Seen /HPF (0-2); WBC,URINE None Seen /HPF (0-5)
[2021-04-23 12:49] LABS: BASOPHILS % (AUTO) 0.5 % (0.0-2.0); EOSINOPHILS % (AUTO) 0.3 % (1.0-6.0); HEMATOCRIT 41.6 % (41-53); HEMOGLOBIN 13.7 g/dL (13.5-17.5); LYMPHOCYTES # (AUTO) 1.2 K/uL (1.0-4.8); LYMPHOCYTES % (AUTO) 10.2 % (22.0-44.0); MEAN CORPUSCULAR VOLUME 85 fL (80-100); MONOCYTES % (AUTO) 8.2 % (2.0-9.0); NEUTROPHILS # (AUTO) 9.7 K/uL (1.8-7.7); NEUTROPHILS % (AUTO) 80.8 % (40.0-70.0); PLATELET COUNT (AUTO) 451 K/uL (150-450); RED CELL DISTRIBUTION WIDTH 15.5 % (11.5-14.5)
[2021-04-23 12:58] LABS: ANION GAP 10 mmol/L (8-16); CALCIUM, TOTAL 8.6 mg/dL (8.8-10.5); CARBON DIOXIDE 25 mmol/L (22-29); CHLORIDE 99 mmol/L (98-107); CREATININE 0.87 mg/dL (0.60-1.30); GLOMERULAR FILTR. RATE CALC > 60 mL/min (>60); GLUCOSE,RANDOM 81 mg/dL (70-110); POTASSIUM 3.7 mmol/L (3.5-5.1); SODIUM SERUM 134 mmol/L (136-145); UREA NITROGEN, BLOOD 8 mg/dL (7-18)
[2021-04-23 13:04] LABS: PROTHROMBIN TIME 10.9 SEC (9.4-11.6)
[2021-04-23 13:05] LABS: AMMONIA 13 umol/L (11-32)
[2021-04-23 13:23] LABS: ALANINE AMINOTRANSFERASE 21 U/L (12-78); ALBUMIN 3.8 g/dL (3.4-5.0); ALKALINE PHOSPHATASE 58 U/L (46-116); ASPARTATE AMINOTRANSFERASE 19 U/L (15-37); BILIRUBIN,TOTAL 0.4 mg/dL (0.1-1.0); CREATINE KINASE, TOTAL ONLY 417 U/L (39-308); TOTAL PROTEIN, SERUM 7.3 g/dL (6.4-8.2)
[2021-04-23 13:24] LABS: TROPONIN I < 0.02 ng/mL (0.00-0.05)
[2021-04-23] MEDS ORDERED: SODIUM CHLORIDE 0.9% 1,000 ML IV ONE ×3 (13:30→15:45)
[2021-04-23] MEDS ORDERED: ACETAMINOPHEN 325 MG TABLET PO PRN ×2 (13:45→15:45)
[2021-04-23] MEDS ORDERED: ONDANSETRON HCL 4 MG/2 ML VIAL IVP PRN ×2 (13:45→15:45)
[2021-04-23 13:47] LABS: LITHIUM < 0.20 mmol/L (0.60-1.20); SALICYLATE 5.7 mg/dL (2.8-20.0)
[2021-04-23 13:51] LABS: ACETAMINOPHEN < 2 mcg/mL (10-30)
[2021-04-23] MEDS ORDERED: MAGNESIUM HYDROXIDE SUSPENSION 30 ML UDCUP PO PRN (15:45)
[2021-04-23] MEDS ORDERED: MORPHINE SULFATE 2 MG/ML SYRINGE IVP PRN (15:45)
[2021-04-23] MEDS ORDERED: HYDROCODONE/ACETAMINOPHEN 5-325 MG TABLET PO PRN (15:45)
[2021-04-23] MEDS ORDERED: LORazepam 2 MG/ML VIAL IVP PRN (15:45)
[2021-04-23] MEDS ORDERED: BISACODYL 10 MG RECTAL RECTAL SUPPOSITORY PR PRN (15:45)
[2021-04-23] MEDS ORDERED: ZOLPIDEM TARTRATE 5 MG TABLET PO PRN (15:45)
[2021-04-23 15:57] VITALS: BP 95/70
[2021-04-23] MEDS ORDERED: PNEUMOCOCCAL VACCINE POLYVALENT 0.5 ML VIAL [PPSV23] IM. ONE (17:45)
[2021-04-23] MEDS: HEPARIN SODIUM,PORCINE 5,000 UNITS/ML VIAL SQ SCH (18:45)
[2021-04-23 20:01] VITALS: BP 115/70
[2021-04-23] MEDS: DOCUSATE SODIUM 100 MG CAPSULE PO SCH (21:00)
[2021-04-23 23:45] VITALS: BP 131/64
[2021-04-24] MEDS: HEPARIN SODIUM,PORCINE 5,000 UNITS/ML VIAL SQ SCH ×3 (00:26→15:37)
[2021-04-24 04:32] VITALS: BP 134/69
[2021-04-24 06:30] LABS: BASOPHILS % (AUTO) 0.8 % (0.0-2.0); HEMATOCRIT 39.5 % (41-53); LYMPHOCYTES # (AUTO) 1.8 K/uL (1.0-4.8); LYMPHOCYTES % (AUTO) 15.3 % (22.0-44.0); MEAN CORPUSCULAR HEMOGLOBIN 27.8 pg (26.0-34.0); MEAN CORPUSCULAR HGB CONC 32.8 G/dL (31.0-37.0); MEAN CORPUSCULAR VOLUME 85 fL (80-100); MONOCYTES # (AUTO) 1.1 K/uL (0.1-1.0); MONOCYTES % (AUTO) 9.2 % (2.0-9.0); NEUTROPHILS # (AUTO) 8.5 K/uL (1.8-7.7); NEUTROPHILS % (AUTO) 73.7 % (40.0-70.0); PLATELET COUNT (AUTO) 440 K/uL (150-450); RED BLOOD CELL COUNT(AUTO) 4.66 MIL/uL (4.50-5.90); RED CELL DISTRIBUTION WIDTH 15.2 % (11.5-14.5)
[2021-04-24 07:14] LABS: ANION GAP 14 mmol/L (8-16); CALCIUM, TOTAL 8.3 mg/dL (8.8-10.5); CARBON DIOXIDE 21 mmol/L (22-29); CHLORIDE 105 mmol/L (98-107); CREATINE KINASE, TOTAL ONLY 544 U/L (39-308); CREATININE 0.58 mg/dL (0.60-1.30); GLOMERULAR FILTR. RATE CALC > 60 mL/min (>60); GLUCOSE,RANDOM 73 mg/dL (70-110); POTASSIUM 3.5 mmol/L (3.5-5.1); SODIUM SERUM 140 mmol/L (136-145); UREA NITROGEN, BLOOD 7 mg/dL (7-18)
[2021-04-24] MEDS: PANTOPRAZOLE SODIUM 40 MG DR TABLET PO SCH (08:21)
[2021-04-24] MEDS: DOCUSATE SODIUM 100 MG CAPSULE PO SCH ×2 (08:21→20:29)
[2021-04-24 08:25] VITALS: BP 122/70
[2021-04-24 12:03] VITALS: BP 141/86
[2021-04-24 15:53] VITALS: BP 123/86
[2021-04-24 19:53] VITALS: BP 149/80
[2021-04-25 04:15] VITALS: BP 125/73
[2021-04-25 08:00] VITALS: BP 131/84
[2021-04-25 08:14] LABS: EOSINOPHILS % (AUTO) 2.1 % (1.0-6.0); HEMATOCRIT 41.1 % (41-53); HEMOGLOBIN 13.5 g/dL (13.5-17.5); LYMPHOCYTES # (AUTO) 1.7 K/uL (1.0-4.8); LYMPHOCYTES % (AUTO) 20.5 % (22.0-44.0); MEAN CORPUSCULAR HGB CONC 32.8 G/dL (31.0-37.0); MEAN CORPUSCULAR VOLUME 85 fL (80-100); MONOCYTES # (AUTO) 0.8 K/uL (0.1-1.0); NEUTROPHILS # (AUTO) 5.5 K/uL (1.8-7.7); NEUTROPHILS % (AUTO) 65.4 % (40.0-70.0); PLATELET COUNT (AUTO) 422 K/uL (150-450); RED BLOOD CELL COUNT(AUTO) 4.81 MIL/uL (4.50-5.90); RED CELL DISTRIBUTION WIDTH 15.7 % (11.5-14.5)
[2021-04-25 08:27] LABS: ANION GAP 6 mmol/L (8-16); CALCIUM, TOTAL 8.5 mg/dL (8.8-10.5); CARBON DIOXIDE 26 mmol/L (22-29); CHLORIDE 103 mmol/L (98-107); CREATININE 0.63 mg/dL (0.60-1.30); GLOMERULAR FILTR. RATE CALC > 60 mL/min (>60); GLUCOSE,RANDOM 96 mg/dL (70-110); POTASSIUM 3.7 mmol/L (3.5-5.1); SODIUM SERUM 135 mmol/L (136-145); UREA NITROGEN, BLOOD 4 mg/dL (7-18)
[2021-04-25] MEDS: HEPARIN SODIUM,PORCINE 5,000 UNITS/ML VIAL SQ SCH ×4 (08:44→23:38)
[2021-04-25] MEDS: PANTOPRAZOLE SODIUM 40 MG DR TABLET PO SCH (08:44)
[2021-04-25] MEDS: DOCUSATE SODIUM 100 MG CAPSULE PO SCH ×2 (08:44→21:00)
[2021-04-25 11:53] VITALS: BP 151/98
[2021-04-25] MEDS ORDERED: SODIUM CHLORIDE 0.9% 500 ML IV ONE (12:00)
[2021-04-25 15:34] VITALS: BP 146/90
[2021-04-25 19:33] VITALS: BP 141/94
[2021-04-25] MEDS: MIRTAZAPINE 15 MG TABLET PO SCH (21:06)
[2021-04-25] MEDS: QUEtiapine FUMARATE 200 MG TABLET PO SCH (21:07)
[2021-04-25] MEDS: OLANZapine 5 MG RAPDIS TABLET PO PRN (21:23)
[2021-04-25 23:55] VITALS: BP 139/83
[2021-04-26 04:10] VITALS: BP 121/64
[2021-04-26 06:47] LABS: BASOPHILS % (AUTO) 1.3 % (0.0-2.0); HEMATOCRIT 40.9 % (41-53); HEMOGLOBIN 13.5 g/dL (13.5-17.5); LYMPHOCYTES # (AUTO) 2.8 K/uL (1.0-4.8); LYMPHOCYTES % (AUTO) 28.3 % (22.0-44.0); MEAN CORPUSCULAR HEMOGLOBIN 28.1 pg (26.0-34.0); MEAN CORPUSCULAR VOLUME 85 fL (80-100); MONOCYTES # (AUTO) 1.1 K/uL (0.1-1.0); MONOCYTES % (AUTO) 10.9 % (2.0-9.0); NEUTROPHILS # (AUTO) 5.5 K/uL (1.8-7.7); NEUTROPHILS % (AUTO) 55.5 % (40.0-70.0); PLATELET COUNT (AUTO) 411 K/uL (150-450); RED CELL DISTRIBUTION WIDTH 15.7 % (11.5-14.5)
[2021-04-26 07:21] LABS: ANION GAP 3 mmol/L (8-16); CALCIUM, TOTAL 8.7 mg/dL (8.8-10.5); CARBON DIOXIDE 28 mmol/L (22-29); CHLORIDE 105 mmol/L (98-107); CREATINE KINASE, TOTAL ONLY 284 U/L (39-308); CREATININE 0.71 mg/dL (0.60-1.30); GLOMERULAR FILTR. RATE CALC > 60 mL/min (>60); GLUCOSE,RANDOM 97 mg/dL (70-110); POTASSIUM 3.8 mmol/L (3.5-5.1); SODIUM SERUM 136 mmol/L (136-145); UREA NITROGEN, BLOOD 11 mg/dL (7-18)
[2021-04-26 08:04] VITALS: BP 133/88
[2021-04-26] MEDS: PANTOPRAZOLE SODIUM 40 MG DR TABLET PO SCH (08:24)
[2021-04-26] MEDS: HEPARIN SODIUM,PORCINE 5,000 UNITS/ML VIAL SQ SCH ×3 (08:24→23:58)
[2021-04-26] MEDS: DOCUSATE SODIUM 100 MG CAPSULE PO SCH ×2 (08:24→20:40)
[2021-04-26] MEDS ORDERED: LevETIRAcetam 500 MG TABLET PO SCH (12:00)
[2021-04-26] MEDS: LevETIRAcetam 500 MG TABLET PO SCH ×2 (12:41→20:41)
[2021-04-26 15:13] VITALS: BP 143/95
[2021-04-26 19:48] VITALS: BP 130/89
[2021-04-26] MEDS: MIRTAZAPINE 15 MG TABLET PO SCH (20:40)
[2021-04-26] MEDS: QUEtiapine FUMARATE 200 MG TABLET PO SCH (20:40)
[2021-04-27 00:06] VITALS: BP 111/69
[2021-04-27 05:30] VITALS: BP 110/59
[2021-04-27] MEDS: OLANZapine 5 MG RAPDIS TABLET PO PRN (06:42)
[2021-04-27 07:43] VITALS: BP 135/91
[2021-04-27] MEDS: LevETIRAcetam 500 MG TABLET PO SCH (08:06)
[2021-04-27] MEDS: PANTOPRAZOLE SODIUM 40 MG DR TABLET PO SCH (08:07)
[2021-04-27] MEDS: DOCUSATE SODIUM 100 MG CAPSULE PO SCH (08:07)
[2021-04-27] MEDS: HEPARIN SODIUM,PORCINE 5,000 UNITS/ML VIAL SQ SCH (08:07)
[2021-04-27 11:03] VITALS: BP 143/92
[2021-04-27] MEDS ORDERED: MIRT-89 PO (14:05)
[2021-04-27] MEDS ORDERED: LEVE500T53 PO ×2 (14:05→14:06)
[2021-04-27] MEDS ORDERED: QUET200T PO (14:07)
== END 2021-04-27 14:25 | disposition home or self-care (01) | DRG 101 ==
LOC: EDBD 10:38 → EMS 10:38 → MERGE 14:40 → 5S 14:40
PROVIDERS: ADMIT Internal Medicine; ATTEND Internal Medicine
DX: G40.909 Epilepsy, unspecified, not intractable, without status epilepticus (principal); R65.10 Systemic inflammatory response syndrome (SIRS) of non-infectious origin without acute organ dysfunction; E87.1 Hypo-osmolality and hyponatremia; M62.82 Rhabdomyolysis; Z20.822 Contact with and (suspected) exposure to COVID-19; F25.0 Schizoaffective disorder, bipolar type; F31.9 Bipolar disorder, unspecified; F15.90 Other stimulant use, unspecified, uncomplicated; F12.90 Cannabis use, unspecified, uncomplicated; Z79.899 Other long term (current) drug therapy
CPT/HCPCS: 51701; 70450; 71045; 72125; 80048; 80053; 80178; 81001; 82140; 82550; 83605; 84484; 85025; 85610; 93005; 95816; 97162; 99291; G0480; G0481; J1644; J2060; J7040; 36415-L1; 36415-TC

== ENCOUNTER 2021-04-28 06:30 | Emergency (ER) | payer MEDICARE, MEDICAID ==
[~2021-04-28] VITALS: Ht 182.9 cm; Wt 72.7 kg
[~2021-04-28 06:30] MED LIST changes: +LEVE500T53 PO; +MIRT-89 PO; +QUET200T PO
[2021-04-28 07:01] VITALS: BP 142/102
== END 2021-04-28 07:16 | disposition home or self-care (01) ==
LOC: MERGE 06:31 → EMS 06:31
DX: S20.221A Contusion of right back wall of thorax, initial encounter (principal); F31.9 Bipolar disorder, unspecified; F20.9 Schizophrenia, unspecified; Z79.899 Other long term (current) drug therapy; Y08.02XA Assault by strike by baseball bat, initial encounter; Y93.89 Activity, other specified; Y92.89 Other specified places as the place of occurrence of the external cause; Y99.8 Other external cause status
CPT/HCPCS: 99283; Z7502

== ENCOUNTER 2022-05-14 22:08 | Inpatient (IN) | payer MEDICARE, MEDICAID ==
[~2022-05-14] VITALS: Ht 170.2 cm; Wt 73.1 kg
[~2022-05-14 22:08] MED LIST changes: -LEVE500T53 PO; -LITH600C5 PO; -PALI234D IM; -PALI6TAB15 PO; +VALP250S10 PO
[2022-05-14] MEDS ORDERED: BUPIVACAINE HCL/PF 0.25% 30 ML VIAL PERC ONE (23:00)
[2022-05-14] MEDS ORDERED: SUGAMMADEX SODIUM 200 MG/2 ML VIAL IVP ONE (23:13)
[2022-05-14] MEDS ORDERED: FentaNYL CITRATE PF 100 MCG/2 ML VIAL IVP PRN (23:45)
[2022-05-14] MEDS ORDERED: DEXTROSE 5%-LACTATED RINGERS 1,000 ML IV ONE (23:45)
[2022-05-14] MEDS ORDERED: HYDROmorphone 2 MG/ML VIAL IVP PRN (23:45)
[2022-05-14] MEDS ORDERED: MORPHINE SULFATE 2 MG/ML SYRINGE IVP PRN (23:45)
[2022-05-14] MEDS ORDERED: ACETAMINOPHEN 325 MG TABLET PO PRN (23:45)
[2022-05-15 00:25] VITALS: BP 142/93
[2022-05-15] MEDS ORDERED: PERMETHRIN 1% 60 ML LOTION TP ONE (01:30)
[2022-05-15] MEDS ORDERED: DiphenhydrAMINE HCL 50 MG/ML VIAL IVP ONE (01:45)
[2022-05-15] MEDS ORDERED: MELATONIN 3 MG TABLET PO PRN (01:45)
[2022-05-15] MEDS ORDERED: SODIUM CHLORIDE 0.9% 250 ML IV ONE (02:11)
[2022-05-15] MEDS: PIPERACILLIN/TAZO 3.375 GM/D5W 50 ML IV SCH ×4 (02:15→20:16)
[2022-05-15 02:46] VITALS: BP 122/77
[2022-05-15] MEDS ORDERED: RINGERS SOLUTION,LACTATED 500 ML IV ONE (05:30)
[2022-05-15] MEDS: LEVOTHYROXINE SODIUM 50 MCG TABLET PO SCH (06:30)
[2022-05-15 07:36] LABS: BASOPHILS % (AUTO) 0.1 % (0.0-2.0); EOSINOPHILS % (AUTO) 0.7 % (1.0-6.0); HEMATOCRIT 38.3 % (41-53); HEMOGLOBIN 12.6 g/dL (13.5-17.5); LYMPHOCYTES # (AUTO) 0.4 K/uL (1.0-4.8); MEAN CORPUSCULAR HEMOGLOBIN 30.7 pg (26.0-34.0); MEAN CORPUSCULAR VOLUME 93 fL (80-100); MONOCYTES # (AUTO) 1.1 K/uL (0.1-1.0); MONOCYTES % (AUTO) 14.9 % (2.0-9.0); NEUTROPHILS # (AUTO) 5.7 K/uL (1.8-7.7); NEUTROPHILS % (AUTO) 78.3 % (40.0-70.0); PLATELET COUNT (AUTO) 280 K/uL (150-450); RED CELL DISTRIBUTION WIDTH 14.6 % (11.5-14.5)
[2022-05-15 07:49] LABS: ANION GAP 5 mmol/L (8-16); CALCIUM, TOTAL 8.6 mg/dL (8.8-10.5); CARBON DIOXIDE 30 mmol/L (22-29); CHLORIDE 102 mmol/L (98-107); CREATININE 0.64 mg/dL (0.60-1.30); GLUCOSE,RANDOM 105 mg/dL (70-110); POTASSIUM 4.2 mmol/L (3.5-5.1); SODIUM SERUM 137 mmol/L (136-145); UREA NITROGEN, BLOOD 11 mg/dL (7-18)
[2022-05-15 07:53] LABS: GLOMERULAR FILTR. RATE CALC > 60 mL/min (>60)
[2022-05-15] MEDS: OXYGEN THERAPY IH SCH ×2 (08:00→20:00)
[2022-05-15] MEDS: MORPHINE SULFATE 2 MG/ML SYRINGE IVP PRN ×3 (08:34→20:22)
[2022-05-15 08:45] VITALS: BP 114/70
[2022-05-15] MEDS: VALPROIC ACID 250 MG/5 ML SOLUTION UDCUP PO SCH ×2 (08:50→20:22)
[2022-05-15] MEDS: RINGERS SOLUTION,LACTATED 1,000 ML IV SCH ×2 (14:06→21:16)
[2022-05-15 17:12] VITALS: BP 124/74
[2022-05-15] MEDS: ONDANSETRON HCL 4 MG/2 ML VIAL IVP PRN (18:06)
[2022-05-15 19:22] VITALS: BP 127/78
[2022-05-15] MEDS: HEPARIN SODIUM,PORCINE 5,000 UNITS/ML VIAL SQ SCH (23:40)
[2022-05-16 00:23] VITALS: BP 127/85
[2022-05-16] MEDS: MORPHINE SULFATE 2 MG/ML SYRINGE IVP PRN ×5 (00:23→20:12)
[2022-05-16] MEDS: PIPERACILLIN/TAZO 3.375 GM/D5W 50 ML IV SCH ×4 (02:20→20:13)
[2022-05-16 04:10] VITALS: BP 120/75
[2022-05-16] MEDS: RINGERS SOLUTION,LACTATED 1,000 ML IV SCH ×3 (05:49→21:30)
[2022-05-16] MEDS: LEVOTHYROXINE SODIUM 50 MCG TABLET PO SCH (05:50)
[2022-05-16 07:14] VITALS: BP 129/86
[2022-05-16] MEDS: OXYGEN THERAPY IH SCH ×2 (08:00→20:24)
[2022-05-16] MEDS: VALPROIC ACID 250 MG/5 ML SOLUTION UDCUP PO SCH ×2 (09:41→20:13)
[2022-05-16] MEDS: HEPARIN SODIUM,PORCINE 5,000 UNITS/ML VIAL SQ SCH ×2 (09:41→16:36)
[2022-05-16 15:38] VITALS: BP 132/84
[2022-05-16 19:25] VITALS: BP 125/89
[2022-05-16] MEDS: QUEtiapine FUMARATE 200 MG TABLET PO SCH (20:14)
[2022-05-17] MEDS: HEPARIN SODIUM,PORCINE 5,000 UNITS/ML VIAL SQ SCH ×3 (01:02→16:41)
[2022-05-17] MEDS: PIPERACILLIN/TAZO 3.375 GM/D5W 50 ML IV SCH ×4 (01:03→20:00)
[2022-05-17] MEDS: MORPHINE SULFATE 2 MG/ML SYRINGE IVP PRN ×5 (01:05→20:40)
[2022-05-17 04:16] VITALS: BP 124/87
[2022-05-17] MEDS: LEVOTHYROXINE SODIUM 50 MCG TABLET PO SCH (05:46)
[2022-05-17] MEDS: RINGERS SOLUTION,LACTATED 1,000 ML IV SCH ×2 (05:46→20:08)
[2022-05-17 07:23] VITALS: BP 111/76
[2022-05-17] MEDS: OXYGEN THERAPY IH SCH ×2 (08:00→20:04)
[2022-05-17] MEDS: VALPROIC ACID 250 MG/5 ML SOLUTION UDCUP PO SCH ×2 (08:59→20:02)
[2022-05-17] MEDS: ONDANSETRON HCL 4 MG/2 ML VIAL IVP PRN (11:49)
[2022-05-17 15:40] VITALS: BP 116/72
[2022-05-17 20:00] VITALS: BP 127/75
[2022-05-17] MEDS: QUEtiapine FUMARATE 200 MG TABLET PO SCH (20:01)
[2022-05-17] MEDS ORDERED: SODIUM CHLORIDE 0.9% 500 ML IV ONE (20:05)
[2022-05-18] MEDS: HEPARIN SODIUM,PORCINE 5,000 UNITS/ML VIAL SQ SCH ×2 (01:00→08:58)
[2022-05-18] MEDS: MORPHINE SULFATE 2 MG/ML SYRINGE IVP PRN ×3 (01:32→13:09)
[2022-05-18] MEDS: PIPERACILLIN/TAZO 3.375 GM/D5W 50 ML IV SCH ×3 (01:32→13:07)
[2022-05-18 04:45] VITALS: BP 114/72
[2022-05-18] MEDS: RINGERS SOLUTION,LACTATED 1,000 ML IV SCH ×2 (06:08→13:08)
[2022-05-18] MEDS: LEVOTHYROXINE SODIUM 50 MCG TABLET PO SCH (06:09)
[2022-05-18 07:24] VITALS: BP 110/72
[2022-05-18] MEDS: OXYGEN THERAPY IH SCH (08:00)
[2022-05-18] MEDS: VALPROIC ACID 250 MG/5 ML SOLUTION UDCUP PO SCH (08:58)
[2022-05-18] MEDS: ONDANSETRON HCL 4 MG/2 ML VIAL IVP PRN (09:06)
[2022-05-18 13:25] LABS: COVID AG,FIA SOURCE NASAL SWAB
[2022-05-18] MEDS ORDERED: QUET200T PO (13:27)
[2022-05-18] MEDS ORDERED: ACET-2247 PO (13:28)
[2022-05-18] MEDS ORDERED: MELA3TAB89 PO (13:29)
[2022-05-18] MEDS ORDERED: AMOX1TAB16 PO (13:31)
== END 2022-05-18 15:03 | disposition short-term general hospital (02) | DRG 853 ==
LOC: 6N 23:38 → UNDOADMIN 05-15 00:25 → UNDODISIN 05-18 15:03
PROVIDERS: ADMIT Internal Medicine; ATTEND Internal Medicine
PROC: 0DTJ4ZZ Resection of Appendix, Percutaneous Endoscopic Approach (ICD-10-PCS; principal; 2022-05-14 22:30)
DX: A41.9 Sepsis, unspecified organism (principal); K35.32 Acute appendicitis with perforation, localized peritonitis, and gangrene, without abscess; J98.11 Atelectasis; K56.7 Ileus, unspecified; B85.1 Pediculosis due to Pediculus humanus corporis; E11.9 Type 2 diabetes mellitus without complications; E27.9 Disorder of adrenal gland, unspecified; F31.9 Bipolar disorder, unspecified; F25.1 Schizoaffective disorder, depressive type; T42.6X1A Poisoning by other antiepileptic and sedative-hypnotic drugs, accidental (unintentional), initial encounter; I10 Essential (primary) hypertension; K42.9 Umbilical hernia without obstruction or gangrene; Z65.3 Problems related to other legal circumstances; Z91.51 Personal history of suicidal behavior; Z93.3 Colostomy status; Y92.89 Other specified places as the place of occurrence of the external cause
CPT/HCPCS: 80048; 83735; 85025; 99285; J1200; J1644; J2270; J2405; J2543; J3490; J7040; J7050; J7120; Q9967

== ENCOUNTER 2025-01-30 11:19 | Inpatient (IN) | payer MEDICARE, OTHER ==
[~2025-01-30] VITALS: Ht 170.2 cm; Wt 66.7 kg
[~2025-01-30 11:19] MED LIST changes: +DIVA-153 PO; +GABA-1181 PO; -LEVO50 PO; +MELA5TAB12 PO; -MIRT-89 PO; +NALT50TA33 PO; +PANT-31 PO; +SODI100067 PO; -VALP250S10 PO
[2025-01-30 12:59] LABS: COVID AG,FIA SOURCE NASAL SWAB
[2025-01-30 13:04] LABS: ANION GAP 8 mmol/L (8-16); BASOPHILS % (AUTO) 0.8 % (0.0-2.0); CALCIUM, TOTAL 8.6 mg/dL (8.8-10.5); CARBON DIOXIDE 26 mmol/L (22-29); CHLORIDE 89 mmol/L (98-107); EOSINOPHILS % (AUTO) 0.1 % (1.0-6.0); GLOMERULAR FILTR. RATE CALC > 60 mL/min (>60); GLUCOSE,RANDOM 100 mg/dL (70-110); HEMATOCRIT 42.6 % (41-53); HEMOGLOBIN 14.1 g/dL (13.5-17.5); LYMPHOCYTES % (AUTO) 8.1 % (22.0-44.0); MEAN CORPUSCULAR HEMOGLOBIN 29.4 pg (26.0-34.0); MEAN CORPUSCULAR HGB CONC 33.1 G/dL (31.0-37.0); MEAN CORPUSCULAR VOLUME 89 fL (80-100); MONOCYTES % (AUTO) 16.8 % (2.0-9.0); NEUTROPHILS # (AUTO) 8.9 K/uL (1.8-7.7); NEUTROPHILS % (AUTO) 74.2 % (40.0-70.0); PLATELET COUNT (AUTO) 441 K/uL (150-450); RED BLOOD CELL COUNT(AUTO) 4.81 MIL/uL (4.50-5.90); RED CELL DISTRIBUTION WIDTH 14.6 % (11.5-14.5); UREA NITROGEN, BLOOD 7 mg/dL (7-18)
[2025-01-30 13:06] LABS: APPEARANCE,URINE CLEAR (CLEAR); BILIRUBIN,URINE NEGATIVE (NEGATIVE); COLOR,URINE YELLOW (YELLOW); GLUCOSE, URINE (UA) NEGATIVE (NEGATIVE); KETONES,URINE TRACE mg/dL (NEGATIVE); LEUKOCYTE ESTERASE ,URINE NEGATIVE (NEGATIVE); NITRATE,URINE NEGATIVE (NEGATIVE); OCCULT BLOOD,URINE NEGATIVE (NEGATIVE); PROTEIN,URINE NEGATIVE (NEGATIVE); SPECIFIC GRAVITIY, URINE 1.014 (1.003-1.030); UROBILINOGEN,URINE <=1.0 mg/dL (<=1.0)
[2025-01-30 13:08] LABS: SODIUM SERUM 123 mmol/L (136-145)
[2025-01-30 13:12] LABS: AMPHET/METH SCREEN,URINE NEGATIVE (NEGATIVE); BARBITURATE SCREEN, URINE NEGATIVE (NEGATIVE); BENZODIAZEPINES SCREEN,URINE NEGATIVE (NEGATIVE); CANNABINOID SCREEN,URINE NEGATIVE (NEGATIVE); COCAINE SCREEN,URINE NEGATIVE (NEGATIVE); METHADONE SCREEN, URINE NEGATIVE (NEGATIVE); OPIATE SCREEN,URINE NEGATIVE (NEGATIVE); PHENCYCLIDINE SCREEN,URINE NEGATIVE (NEGATIVE)
[2025-01-30 13:13] LABS: ALCOHOL, URINE DRUG SCREEN NEGATIVE (NEGATIVE)
[2025-01-30] MEDS ORDERED: MAGNESIUM HYDROXIDE SUSPENSION 30 ML UDCUP PO PRN (13:30)
[2025-01-30] MEDS: SODIUM CHLORIDE 0.9% 1,000 ML IV ONE (13:31)
[2025-01-30 13:49] LABS: SARS-COV2 (COVID) ANTIGEN,FIA Positive (Negative)
[2025-01-30 13:49] LABS: FREE T4 (FREE THYROXINE) 1.07 ng/dL (0.76-1.46); THYROID STIMULATING HORMONE 1.6 uIU/mL (0.36-3.74)
[2025-01-30 13:57] LABS: ANION GAP 7 mmol/L (8-16); CALCIUM, TOTAL 8.8 mg/dL (8.8-10.5); CARBON DIOXIDE 26 mmol/L (22-29); CHLORIDE 88 mmol/L (98-107); CREATININE 0.75 mg/dL (0.60-1.30); GLOMERULAR FILTR. RATE CALC > 60 mL/min (>60); GLUCOSE,RANDOM 110 mg/dL (70-110); POTASSIUM 3.8 mmol/L (3.5-5.1); UREA NITROGEN, BLOOD 7 mg/dL (7-18)
[2025-01-30 14:02] LABS: SODIUM SERUM 121 mmol/L (136-145)
[2025-01-30] MEDS: SODIUM CHLORIDE 1 GM TABLET PO SCH ×2 (14:25→18:07)
[2025-01-30] MEDS: haloperidoL LACTATE 5 MG/ML VIAL IM ONE (18:14)
[2025-01-30] MEDS: LORazepam 2 MG/ML VIAL IM ONE (18:14)
[2025-01-30] MEDS: DiphenhydrAMINE HCL 50 MG/ML VIAL IM ONE (18:15)
[2025-01-30 21:24] VITALS: BP 112/79; PULSE 84; RESP 19; TEMP 98.1; O2SAT 99
[2025-01-30 21:56] LABS: ANION GAP 3 mmol/L (8-16); CALCIUM, TOTAL 8.2 mg/dL (8.8-10.5); CARBON DIOXIDE 28 mmol/L (22-29); CHLORIDE 90 mmol/L (98-107); CREATININE 0.71 mg/dL (0.60-1.30); GLOMERULAR FILTR. RATE CALC > 60 mL/min (>60); GLUCOSE,RANDOM 98 mg/dL (70-110); POTASSIUM 3.8 mmol/L (3.5-5.1); UREA NITROGEN, BLOOD 8 mg/dL (7-18)
[2025-01-30 22:04] LABS: SODIUM SERUM 121 mmol/L (136-145)
[2025-01-30 23:19] VITALS: BP 110/78; PULSE 79; RESP 18; TEMP 96.8; O2SAT 100
[2025-01-31 04:40] VITALS: BP 112/81; PULSE 85; RESP 18; TEMP 97.7; O2SAT 98
[2025-01-31 06:07] LABS: HEMATOCRIT 40.2 % (41-53); HEMOGLOBIN 13.4 g/dL (13.5-17.5); MEAN CORPUSCULAR HEMOGLOBIN 29.2 pg (26.0-34.0); MEAN CORPUSCULAR HGB CONC 33.3 G/dL (31.0-37.0); MEAN CORPUSCULAR VOLUME 88 fL (80-100); PLATELET COUNT (AUTO) 423 K/uL (150-450); RED BLOOD CELL COUNT(AUTO) 4.57 MIL/uL (4.50-5.90); RED CELL DISTRIBUTION WIDTH 14.8 % (11.5-14.5); WHITE BLOOD COUNT (AUTO) 6.4 K/uL (4.5-11.0)
[2025-01-31 06:14] LABS: ANION GAP 5 mmol/L (8-16); CALCIUM, TOTAL 8.2 mg/dL (8.8-10.5); CARBON DIOXIDE 25 mmol/L (22-29); CHLORIDE 93 mmol/L (98-107); CREATININE 0.61 mg/dL (0.60-1.30); GLOMERULAR FILTR. RATE CALC > 60 mL/min (>60); GLUCOSE,RANDOM 91 mg/dL (70-110); POTASSIUM 4.1 mmol/L (3.5-5.1); UREA NITROGEN, BLOOD 12 mg/dL (7-18)
[2025-01-31 06:17] LABS: SODIUM SERUM 123 mmol/L (136-145)
[2025-01-31 07:52] VITALS: BP 118/92; PULSE 90; RESP 18; TEMP 98.1; O2SAT 98
[2025-01-31] MEDS: FAMOTIDINE 20 MG TABLET PO SCH (08:26)
[2025-01-31 09:10] LABS: BAND NEUTROPHILS % (MANUAL) 5 % (0-5); LYMPHOCYTES % (MANUAL) 39 % (22-44); METAMYELOCYTES % 1 % (0-0); MONOCYTES % (MANUAL) 5 % (2-9); RBC MORPHOLOGY COMMENT NORMAL RBC MORPH; SEGMENTED NEUTROPHILS % 50 % (40-70); TOTAL CELLS COUNTED 100
[2025-01-31] MEDS: ONDANSETRON HCL 4 MG/2 ML VIAL IVP PRN (11:35)
[2025-01-31 11:49] VITALS: BP 112/79; PULSE 94; RESP 18; TEMP 98.4; O2SAT 98
[2025-01-31] MEDS: ACETAMINOPHEN 325 MG TABLET PO PRN (13:19)
[2025-01-31 15:32] VITALS: BP 119/72; PULSE 91; RESP 18; TEMP 97.9; O2SAT 97
[2025-01-31] MEDS: QUEtiapine FUMARATE 200 MG TABLET PO SCH ×2 (17:54→21:07)
[2025-01-31 18:05] LABS: ANION GAP 9 mmol/L (8-16); CALCIUM, TOTAL 8.4 mg/dL (8.8-10.5); CARBON DIOXIDE 25 mmol/L (22-29); CHLORIDE 92 mmol/L (98-107); CREATININE 0.66 mg/dL (0.60-1.30); GLOMERULAR FILTR. RATE CALC > 60 mL/min (>60); GLUCOSE,RANDOM 85 mg/dL (70-110); SODIUM SERUM 126 mmol/L (136-145); UREA NITROGEN, BLOOD 8 mg/dL (7-18)
[2025-01-31 19:36] VITALS: BP 123/92; PULSE 87; RESP 18; TEMP 98.4; O2SAT 97
[2025-01-31] MEDS: DIVALPROEX SODIUM 500 MG ER TABLET PO SCH (21:06)
[2025-01-31] MEDS: MELATONIN 5 MG TABLET PO SCH (21:07)
[2025-01-31 23:48] VITALS: BP 111/79; PULSE 89; RESP 18; TEMP 97.7; O2SAT 97
[2025-01-31] MEDS: ZOLPIDEM TARTRATE 5 MG TABLET PO PRN (23:55)
[2025-02-01 04:14] VITALS: BP 111/80; PULSE 90; RESP 18; TEMP 97.5; O2SAT 98
[2025-02-01 06:47] LABS: BASOPHILS % (AUTO) 1.3 % (0.0-2.0); EOSINOPHILS % (AUTO) 4.5 % (1.0-6.0); HEMATOCRIT 41.7 % (41-53); HEMOGLOBIN 14.2 g/dL (13.5-17.5); LYMPHOCYTES # (AUTO) 2.2 K/uL (1.0-4.8); LYMPHOCYTES % (AUTO) 36.3 % (22.0-44.0); MEAN CORPUSCULAR HGB CONC 34.1 G/dL (31.0-37.0); MEAN CORPUSCULAR VOLUME 88 fL (80-100); MONOCYTES # (AUTO) 1.2 K/uL (0.1-1.0); MONOCYTES % (AUTO) 19.1 % (2.0-9.0); NEUTROPHILS # (AUTO) 2.4 K/uL (1.8-7.7); NEUTROPHILS % (AUTO) 38.8 % (40.0-70.0); PLATELET COUNT (AUTO) 425 K/uL (150-450); RED BLOOD CELL COUNT(AUTO) 4.73 MIL/uL (4.50-5.90); RED CELL DISTRIBUTION WIDTH 14.5 % (11.5-14.5); WHITE BLOOD COUNT (AUTO) 6.1 K/uL (4.5-11.0)
[2025-02-01 06:51] LABS: ANION GAP 9 mmol/L (8-16); CALCIUM, TOTAL 8.5 mg/dL (8.8-10.5); CARBON DIOXIDE 25 mmol/L (22-29); CHLORIDE 98 mmol/L (98-107); CREATININE 0.63 mg/dL (0.60-1.30); GLOMERULAR FILTR. RATE CALC > 60 mL/min (>60); GLUCOSE,RANDOM 123 mg/dL (70-110); POTASSIUM 3.5 mmol/L (3.5-5.1); SODIUM SERUM 132 mmol/L (136-145); UREA NITROGEN, BLOOD 12 mg/dL (7-18)
[2025-02-01 07:53] VITALS: BP 112/86; PULSE 90; RESP 18; TEMP 98; O2SAT 97
[2025-02-01 11:15] VITALS: BP 120/90; PULSE 88; RESP 18; TEMP 98.1; O2SAT 98
[2025-02-01] MEDS: SODIUM CHLORIDE 1 GM TABLET PO SCH (12:20)
[2025-02-01 15:31] VITALS: BP 118/82; PULSE 90; RESP 17; TEMP 98; O2SAT 97
[2025-02-01 19:28] VITALS: BP 132/87; PULSE 87; RESP 18; TEMP 98.6; O2SAT 96
[2025-02-01 23:42] VITALS: BP 115/82; PULSE 86; RESP 18; TEMP 97.6; O2SAT 97
[2025-02-02 04:32] VITALS: BP 106/78; PULSE 81; RESP 18; TEMP 97.5; O2SAT 97
[2025-02-02 06:41] LABS: ANION GAP 8 mmol/L (8-16); CALCIUM, TOTAL 8.5 mg/dL (8.8-10.5); CARBON DIOXIDE 26 mmol/L (22-29); CHLORIDE 98 mmol/L (98-107); CREATININE 0.74 mg/dL (0.60-1.30); GLOMERULAR FILTR. RATE CALC > 60 mL/min (>60); GLUCOSE,RANDOM 113 mg/dL (70-110); POTASSIUM 3.6 mmol/L (3.5-5.1); SODIUM SERUM 132 mmol/L (136-145); UREA NITROGEN, BLOOD 16 mg/dL (7-18)
[2025-02-02 07:09] LABS: BASOPHILS % (AUTO) 1.4 % (0.0-2.0); EOSINOPHILS % (AUTO) 5.9 % (1.0-6.0); HEMATOCRIT 40.3 % (41-53); HEMOGLOBIN 13.6 g/dL (13.5-17.5); LYMPHOCYTES # (AUTO) 2.5 K/uL (1.0-4.8); LYMPHOCYTES % (AUTO) 37.7 % (22.0-44.0); MEAN CORPUSCULAR HGB CONC 33.9 G/dL (31.0-37.0); MEAN CORPUSCULAR VOLUME 89 fL (80-100); MONOCYTES % (AUTO) 15.8 % (2.0-9.0); NEUTROPHILS # (AUTO) 2.6 K/uL (1.8-7.7); NEUTROPHILS % (AUTO) 39.2 % (40.0-70.0); PLATELET COUNT (AUTO) 415 K/uL (150-450); RED BLOOD CELL COUNT(AUTO) 4.54 MIL/uL (4.50-5.90); RED CELL DISTRIBUTION WIDTH 14.5 % (11.5-14.5); WHITE BLOOD COUNT (AUTO) 6.6 K/uL (4.5-11.0)
[2025-02-02 08:03] VITALS: BP 119/86; PULSE 80; RESP 18; TEMP 97.7; O2SAT 96
[2025-02-02 10:06] LABS: GLUCOMETER DEV NAME(LOC) 5S.2D; GLUCOSE,POINT OF CARE 131 MG/DL (70-110)
[2025-02-02 13:02] VITALS: BP 130/87; PULSE 83; RESP 18; TEMP 97.9; O2SAT 97
== END 2025-02-02 13:15 | disposition left against medical advice (07) | DRG 640 ==
LOC: EMS 11:21 → EDH 13:46 → 5S 22:49
PROVIDERS: ADMIT Internal Medicine; ATTEND Internal Medicine
DX: E87.1 Hypo-osmolality and hyponatremia (principal); U07.1 COVID-19; R45.851 Suicidal ideations; Z59.00 Homelessness unspecified; E05.90 Thyrotoxicosis, unspecified without thyrotoxic crisis or storm; I10 Essential (primary) hypertension; F25.1 Schizoaffective disorder, depressive type; F31.9 Bipolar disorder, unspecified; F17.210 Nicotine dependence, cigarettes, uncomplicated; G47.00 Insomnia, unspecified; Z65.3 Problems related to other legal circumstances; Z79.899 Other long term (current) drug therapy; Z93.3 Colostomy status
CPT/HCPCS: 71045; 80048; 80164; 80307; 81003; 82533; 82962; 83930; 83935; 84300; 84439; 84443; 85025; 99291; G0480; J1200; J1630; J2060; J2405; 36415-L1; 36415-TC